=== PATIENT | female | born 1975 | race American Indian/Alaskan Native ===

== ENCOUNTER 2018-01-20 14:36 | Outpatient (CLI) | payer OTHER ==
[~2018-01-20 14:36] MED LIST: PRENATAL TABLE1 EAC2 PO
== END 2018-01-21 11:35 | disposition home or self-care (01) ==
LOC: OBS/DEL 14:36
DX: O47.1 False labor at or after 37 completed weeks of gestation (principal); Z34.83 Encounter for supervision of other normal pregnancy, third trimester

== ENCOUNTER 2018-02-01 00:06 | Inpatient (IN) | payer OTHER ==
[~2018-02-01] VITALS: Ht 165.1 cm; Wt 73.0 kg
== END 2018-02-03 13:25 | DRG 775 ==
LOC: LDR 00:06 → OB/GYN 00:06
PROC: 10E0XZZ Delivery of Products of Conception, External Approach (ICD-10-PCS; principal; 2018-02-01)
PROC: 4A1HXCZ Monitoring of Products of Conception, Cardiac Rate, External Approach (ICD-10-PCS; 2018-02-01)
PROC: 4A033R1 Measurement of Arterial Saturation, Peripheral, Percutaneous Approach (ICD-10-PCS; 2018-02-01)
DX: O80 Encounter for full-term uncomplicated delivery (principal); Z3A.39 39 weeks gestation of pregnancy; Z37.0 Single live birth